=== PATIENT | female | born 1940 | race Hispanic/Latino ===

== ENCOUNTER 2017-06-09 12:07 | Inpatient (IN) | payer OTHER ==
[~2017-06-09] VITALS: Ht 149.9 cm; Wt 53.4 kg
[~2017-06-09 12:07] MED LIST: ADV250 IH; AEC81 PO; ATOR10 PO; CARV3.12 PO; Cephalexin PO; FURO20TA6 PO; LEVAHFA IH; PRED10TA3 PO
[2017-06-09] MEDS ORDERED: IPRATROPIUM/ALBUTEROL SULFATE 3 ML SOLUTION IH ONE (12:16)
[2017-06-09] MEDS ORDERED: CEFTRIAXONE SODIUM 2 GM VIAL ONE (12:26)
[2017-06-09] MEDS ORDERED: DEXAMETHASONE SOD PHOSPHATE 10MG/ML 1ML VIAL ONE (12:26)
[2017-06-09] MEDS ORDERED: ALBUTEROL SULFATE 0.083% 2.5 MG/3 ML INH IH ONE (12:32)
[2017-06-09 12:40] LABS: BASOPHILS % (AUTO) 1.5 % (0.0-5.0); EOSINOPHILS % (AUTO) 2.8 % (0.0-8.0); HEMATOCRIT 34.5 % (36-48); LYMPHOCYTES % (AUTO) 35.6 % (21.0-51.0); MEAN CORPUSCULAR HEMOGLOBIN 28.6 pg (27.0-33.0); MEAN CORPUSCULAR HGB CONC 32.3 g/dL (32.0-36.0); MEAN CORPUSCULAR VOLUME 88.7 fL (79-99); MONOCYTES % (AUTO) 4.8 % (3.0-13.0); NEUTROPHILS % (AUTO) 55.3 % (40.0-77.0); PLATELET COUNT (AUTO) 333 K/uL (130-400); RED BLOOD CELL COUNT(AUTO) 3.89 MIL/uL (4.00-5.50); RED CELL DISTRIBUTION WIDTH 15.8 % (11.0-15.5); WHITE BLOOD COUNT (AUTO) 8.8 K/uL (4.8-10.8)
[2017-06-09 12:40] LABS: ABG BASE EXCESS -1.2 mmol/L (-2.0-3.0); ABG HCO3 29.1 mmol/L (21.0-28.0); ABG OXYGEN SATURATION 98.8 % (95.0-99.0); ABG PCO2 76 mmHg (32-45)
[2017-06-09 12:53] LABS: CREATININE 1.2 mg/dL (0.5-1.5); POTASSIUM 4.9 mmol/L (3.5-5.1)
[2017-06-09 12:58] LABS: BILIRUBIN,TOTAL 0.2 mg/dL (0.2-1.0); TOTAL PROTEIN, SERUM 7.2 g/dL (6.0-8.3)
[2017-06-09 13:51] LABS: CREATINE KINASE MB 0.9 ng/mL (0.5-3.6); CREATINE KINASE, TOTAL 49 U/L (21-232); MYOGLOBIN 63 ng/mL (10-92); TROPONIN I < 0.04 ng/mL (0.00-0.06)
[2017-06-09 15:10] VITALS: BP 131/70
[2017-06-09] MEDS ORDERED: METHYLPREDNISOLONE SOD SUCC 125MG/2ML VIAL IVP SCH (16:00)
[2017-06-09] MEDS ORDERED: IPRATROPIUM/ALBUTEROL SULFATE 3 ML SOLUTION IH PRN (16:00)
[2017-06-09] MEDS ORDERED: ENOXAPARIN SODIUM 30 MG/0.3 ML SQ SCH (16:45)
[2017-06-09] MEDS ORDERED: SODIUM CHLORIDE 0.9% 1000ML 1,000 ML IV SCH (17:26)
[2017-06-09] MEDS ORDERED: DiphenhydrAMINE HCL 50 MG/ML VIAL IV PRN (17:30)
[2017-06-09] MEDS ORDERED: CEFTRIAXONE 1GM/D5W 50ML 50 ML IV SCH (17:30)
[2017-06-09] MEDS ORDERED: DIPHENHYDRAMINE HCL 25 MG CAPSULE PO PRN (17:30)
[2017-06-09] MEDS ORDERED: ONDANSETRON HCL 4 MG/2 ML VIAL IV PRN (17:30)
[2017-06-09] MEDS ORDERED: LACTULOSE 20 GM/30 ML UDCUP PO PRN (17:30)
[2017-06-09] MEDS ORDERED: ACETAMINOPHEN 325 MG TAB PO PRN ×2 (17:30)
[2017-06-09] MEDS ORDERED: MAG HYDROX/AL HYDROX/SIMETH ES 30 ML SUSP UDCUP PO PRN (17:30)
[2017-06-09] MEDS: METHYLPREDNISOLONE SOD SUCC 125MG/2ML VIAL IVP SCH ×2 (17:43→23:35)
[2017-06-09] MEDS ORDERED: LIDOCAINE HCL-MPF 1% 2ML VIAL IVP PRN (17:45)
[2017-06-09] MEDS ORDERED: POTASSIUM CHLORIDE 20MEQ/100ML 100 ML IV PRN (17:45)
[2017-06-09] MEDS ORDERED: AZITHROMYCIN 250 MG TABLET PO SCH ×2 (17:45→21:00)
[2017-06-09] MEDS ORDERED: POTASSIUM CHLORIDE 20 MEQ ERTAB PO PRN (17:45)
[2017-06-09] MEDS ORDERED: POTASSIUM CHLORIDE 10% ELIXIR 20 MEQ/15 ML UDCUP PO PRN (17:45)
[2017-06-09 19:01] VITALS: BP 126/68
[2017-06-09] MEDS ORDERED: ALBU1.252 IH (19:35)
[2017-06-09] MEDS ORDERED: IPRA3AMP4 IH (19:35)
[2017-06-09] MEDS ORDERED: CLON1TAB4 PO (19:35)
[2017-06-09] MEDS ORDERED: ALBU0.63 IH (19:35)
[2017-06-09] MEDS ORDERED: IPRA0.2S54 IH (19:35)
[2017-06-09] MEDS ORDERED: LEVAHFA IH (19:35)
[2017-06-09] MEDS ORDERED: CEPH PO (19:35)
[2017-06-09] MEDS ORDERED: RANI15SY2 PO (19:35)
[2017-06-09] MEDS ORDERED: ACET-48 PO (19:35)
[2017-06-09] MEDS ORDERED: DICLOFENAC 1% TP (19:35)
[2017-06-09] MEDS ORDERED: CARV6.25 PO (19:35)
[2017-06-09] MEDS ORDERED: TRIAMCINOLONE 0.1% TP (19:35)
[2017-06-09] MEDS: IPRATROPIUM/ALBUTEROL SULFATE 3 ML SOLUTION IH SCH ×2 (19:43→22:49)
[2017-06-09] MEDS: ATORVASTATIN CALCIUM 20 MG TABLET PO SCH (21:00)
[2017-06-09] MEDS: CARVEDILOL 3.125 MG TABLET PO SCH (21:04)
[2017-06-09 23:05] VITALS: BP 116/62
[2017-06-10] MEDS: IPRATROPIUM/ALBUTEROL SULFATE 3 ML SOLUTION IH SCH ×6 (02:02→22:29)
[2017-06-10 02:59] VITALS: BP 126/59
[2017-06-10 03:43] LABS: CREATININE 1.1 mg/dL (0.5-1.5)
[2017-06-10 03:50] LABS: HEMATOCRIT 31.4 % (36-48); MEAN CORPUSCULAR HEMOGLOBIN 29.4 pg (27.0-33.0); MEAN CORPUSCULAR HGB CONC 33.2 g/dL (32.0-36.0); MEAN CORPUSCULAR VOLUME 88.4 fL (79-99); NUCLEATED RED BLOOD CELLS 0.1 % (0.0-0.19); PLATELET COUNT (AUTO) 280 K/uL (130-400); RED BLOOD CELL COUNT(AUTO) 3.55 MIL/uL (4.00-5.50); RED CELL DISTRIBUTION WIDTH 15.1 % (11.0-15.5); WHITE BLOOD COUNT (AUTO) 5.7 K/uL (4.8-10.8)
[2017-06-10] MEDS: METHYLPREDNISOLONE SOD SUCC 125MG/2ML VIAL IVP SCH (05:50)
[2017-06-10 08:19] VITALS: BP 124/59
[2017-06-10] MEDS ORDERED: CEFTRIAXONE SODIUM 1 GM IVP SCH (09:00)
[2017-06-10] MEDS ORDERED: FAMOTIDINE 20MG TAB 20 MG TAB PO SCH (09:00)
[2017-06-10] MEDS ORDERED: CEFTRIAXONE 1GM/D5W 50ML 50 ML IV SCH (09:00)
[2017-06-10] MEDS: ASPIRIN 81 MG EC TAB PO SCH (09:20)
[2017-06-10] MEDS: PANTOPRAZOLE SODIUM 40 MG TABLET.DR PO SCH (09:20)
[2017-06-10] MEDS: CARVEDILOL 3.125 MG TABLET PO SCH ×2 (09:21→20:33)
[2017-06-10] MEDS: FUROSEMIDE 20 MG TABLET PO SCH (09:21)
[2017-06-10] MEDS: ENOXAPARIN SODIUM 30 MG/0.3 ML SQ SCH (09:22)
[2017-06-10] MEDS: PREDNISONE 20 MG TABLET PO SCH (10:15)
[2017-06-10 11:00] VITALS: BP 109/61
[2017-06-10] MEDS ORDERED: CARV3.1262 PO (13:23)
[2017-06-10] MEDS ORDERED: AZIT250T PO (13:27)
[2017-06-10] MEDS ORDERED: PRED10TA3 PO (13:27)
[2017-06-10 16:00] VITALS: BP 155/81
[2017-06-10] MEDS: DOCUSATE SODIUM 100 MG CAP PO SCH (16:30)
[2017-06-10 19:00] VITALS: BP 159/83
[2017-06-10] MEDS: ATORVASTATIN CALCIUM 20 MG TABLET PO SCH (20:30)
[2017-06-10] MEDS: GUAIFENESIN 600 MG TABLET.ER PO SCH (20:33)
[2017-06-10] MEDS: AZITHROMYCIN 250 MG TABLET PO SCH (20:34)
[2017-06-10 23:00] VITALS: BP 140/72
[2017-06-11] MEDS: IPRATROPIUM/ALBUTEROL SULFATE 3 ML SOLUTION IH SCH ×6 (01:30→22:02)
[2017-06-11 03:00] VITALS: BP 126/58
[2017-06-11] MEDS: DOCUSATE SODIUM 100 MG CAP PO SCH ×2 (06:12→16:30)
[2017-06-11 07:38] VITALS: BP 150/86
[2017-06-11] MEDS: PANTOPRAZOLE SODIUM 40 MG TABLET.DR PO SCH (09:40)
[2017-06-11] MEDS: ENOXAPARIN SODIUM 30 MG/0.3 ML SQ SCH (09:40)
[2017-06-11] MEDS: GUAIFENESIN 600 MG TABLET.ER PO SCH ×2 (09:40→20:28)
[2017-06-11] MEDS: FUROSEMIDE 20 MG TABLET PO SCH (09:40)
[2017-06-11] MEDS: PREDNISONE 20 MG TABLET PO SCH (09:41)
[2017-06-11] MEDS: ASPIRIN 81 MG EC TAB PO SCH (09:41)
[2017-06-11] MEDS: CARVEDILOL 3.125 MG TABLET PO SCH ×2 (09:41→20:27)
[2017-06-11 11:29] VITALS: BP 162/80
[2017-06-11 16:09] VITALS: BP 152/80
[2017-06-11 19:00] VITALS: BP 141/67
[2017-06-11] MEDS: ATORVASTATIN CALCIUM 20 MG TABLET PO SCH (20:28)
[2017-06-11] MEDS: AZITHROMYCIN 250 MG TABLET PO SCH (20:28)
[2017-06-11 23:00] VITALS: BP 106/64
[2017-06-12] MEDS: IPRATROPIUM/ALBUTEROL SULFATE 3 ML SOLUTION IH SCH ×3 (01:43→09:52)
[2017-06-12 03:00] VITALS: BP 127/64
[2017-06-12] MEDS: DOCUSATE SODIUM 100 MG CAP PO SCH (05:24)
[2017-06-12 07:00] VITALS: BP 144/70
[2017-06-12] MEDS: GUAIFENESIN 600 MG TABLET.ER PO SCH (08:38)
[2017-06-12] MEDS: ASPIRIN 81 MG EC TAB PO SCH (08:38)
[2017-06-12] MEDS: PREDNISONE 20 MG TABLET PO SCH (08:38)
[2017-06-12] MEDS: ENOXAPARIN SODIUM 30 MG/0.3 ML SQ SCH (08:39)
[2017-06-12] MEDS: CARVEDILOL 3.125 MG TABLET PO SCH (08:39)
[2017-06-12] MEDS: FUROSEMIDE 20 MG TABLET PO SCH (08:39)
[2017-06-12] MEDS: PANTOPRAZOLE SODIUM 40 MG TABLET.DR PO SCH (08:39)
[2017-06-12 11:00] VITALS: BP 154/89
== END 2017-06-12 11:20 | disposition home or self-care (01) | DRG 189 ==
LOC: EDH 12:07 → EDHIP 14:05 → 2DH 15:11
PROVIDERS: ADMIT Internal Medicine; ATTEND Internal Medicine
DX: J96.21 Acute and chronic respiratory failure with hypoxia (principal); E11.22 Type 2 diabetes mellitus with diabetic chronic kidney disease; E11.42 Type 2 diabetes mellitus with diabetic polyneuropathy; I13.0 Hypertensive heart and chronic kidney disease with heart failure and stage 1 through stage 4 chronic kidney disease, or unspecified chronic kidney disease; I50.32 Chronic diastolic (congestive) heart failure; J44.1 Chronic obstructive pulmonary disease with (acute) exacerbation; J84.10 Pulmonary fibrosis, unspecified; Z99.81 Dependence on supplemental oxygen; K21.9 Gastro-esophageal reflux disease without esophagitis; I25.10 Atherosclerotic heart disease of native coronary artery without angina pectoris; N18.2 Chronic kidney disease, stage 2 (mild); F41.9 Anxiety disorder, unspecified; E04.2 Nontoxic multinodular goiter; E78.5 Hyperlipidemia, unspecified; F03.90 Unspecified dementia, unspecified severity, without behavioral disturbance, psychotic disturbance, mood disturbance, and anxiety; F32.9 Major depressive disorder, single episode, unspecified; I27.20 Pulmonary hypertension, unspecified; E11.51 Type 2 diabetes mellitus with diabetic peripheral angiopathy without gangrene; I70.0 Atherosclerosis of aorta; J30.9 Allergic rhinitis, unspecified; M81.0 Age-related osteoporosis without current pathological fracture; Z51.5 Encounter for palliative care; Z66 Do not resuscitate; Z79.82 Long term (current) use of aspirin; Z79.899 Other long term (current) drug therapy; Z95.5 Presence of coronary angioplasty implant and graft; Z87.891 Personal history of nicotine dependence; Z85.3 Personal history of malignant neoplasm of breast; Z83.3 Family history of diabetes mellitus; Z82.5 Family history of asthma and other chronic lower respiratory diseases; Z82.49 Family history of ischemic heart disease and other diseases of the circulatory system; Z82.3 Family history of stroke; Z82.0 Family history of epilepsy and other diseases of the nervous system; Z80.0 Family history of malignant neoplasm of digestive organs; Z88.8 Allergy status to other drugs, medicaments and biological substances
CPT/HCPCS: 36415; 36600; 71045; 74018; 80048; 80053; 82550; 82553; 82803; 83874; 83880; 84484; 85025; 85027; 87040; 87186; 87804; 93005; 94640; 94660; 94664; 99291; A4218; J0696; J1100; J1650; J2930; J7030

== ENCOUNTER 2017-09-28 11:49 | Observation (INO) | payer OTHER ==
[~2017-09-28] VITALS: Ht 149.9 cm; Wt 53.2 kg
[~2017-09-28 11:49] MED LIST changes: -ADV250 IH; +ALBU1.252 IH; +AZIT250T PO; -CARV3.12 PO; +CARV3.1262 PO; +CLON1TAB5 PO; -Cephalexin PO; -FURO20TA6 PO; -LEVAHFA IH
[2017-09-28] MEDS ORDERED: METHYLPREDNISOLONE SOD SUCC 125MG/2ML VIAL ONE (11:56)
[2017-09-28] MEDS ORDERED: IPRATROPIUM/ALBUTEROL SULFATE 3 ML SOLUTION IH ONE (12:02)
[2017-09-28 12:23] LABS: ABG BASE EXCESS 5.6 mmol/L (-2.0-3.0); ABG HCO3 35.1 mmol/L (21.0-28.0); ABG OXYGEN SATURATION 97.6 % (95.0-99.0); ABG PCO2 75 mmHg (32-45)
[2017-09-28 12:32] LABS: BASOPHILS % (AUTO) 0.5 % (0.0-5.0); EOSINOPHILS % (AUTO) 3.6 % (0.0-8.0); LYMPHOCYTES % (AUTO) 21.8 % (21.0-51.0); MEAN CORPUSCULAR HEMOGLOBIN 30.3 pg (27.0-33.0); MEAN CORPUSCULAR HGB CONC 34.1 g/dL (32.0-36.0); MEAN CORPUSCULAR VOLUME 88.6 fL (79-99); MONOCYTES % (AUTO) 9.4 % (3.0-13.0); NEUTROPHILS % (AUTO) 64.7 % (40.0-77.0); PLATELET COUNT (AUTO) 271 K/uL (130-400); RED BLOOD CELL COUNT(AUTO) 4.06 MIL/uL (4.00-5.50); RED CELL DISTRIBUTION WIDTH 15.3 % (11.0-15.5); WHITE BLOOD COUNT (AUTO) 6.1 K/uL (4.8-10.8)
[2017-09-28 12:55] LABS: CREATININE 0.8 mg/dL (0.5-1.5); POTASSIUM 4.9 mmol/L (3.5-5.1)
[2017-09-28 13:38] LABS: B-TYPE NATRIURETIC PEPTIDE 205 pg/mL (0-100)
[2017-09-28] MEDS ORDERED: ALBUTEROL SULFATE 0.083% 2.5 MG/3 ML INH IH ONE (13:46)
[2017-09-28] MEDS ORDERED: LEVOFLOXACIN 500 MG/D5W 100 ML 100 ML ONE (14:10)
[2017-09-28] MEDS ORDERED: 1/2 NORMAL SALINE 1,000 ML IV SCH (15:15)
[2017-09-28] MEDS ORDERED: FURO20TA4 PO (17:07)
[2017-09-28] MEDS ORDERED: PRED2.5T PO (17:07)
[2017-09-28 18:09] VITALS: BP 178/82
[2017-09-28] MEDS: IPRATROPIUM/ALBUTEROL SULFATE 3 ML SOLUTION IH SCH ×2 (18:30→21:36)
[2017-09-28 19:00] VITALS: BP 153/84
[2017-09-28] MEDS ORDERED: POTASSIUM CHLORIDE 20MEQ/100ML 100 ML IV PRN ×2 (20:30)
[2017-09-28] MEDS ORDERED: POTASSIUM CHLORIDE 10% ELIXIR 20 MEQ/15 ML UDCUP PO PRN ×2 (20:30)
[2017-09-28] MEDS ORDERED: ONDANSETRON HCL 4 MG/2 ML VIAL IV PRN (20:30)
[2017-09-28] MEDS ORDERED: MAG HYDROX/AL HYDROX/SIMETH ES 30 ML SUSP UDCUP PO PRN (20:30)
[2017-09-28] MEDS ORDERED: LIDOCAINE HCL-MPF 1% 2ML VIAL IVP PRN ×2 (20:30)
[2017-09-28] MEDS ORDERED: ALBUTEROL SULFATE 0.083% 2.5 MG/3 ML INH IH PRN (20:30)
[2017-09-28] MEDS ORDERED: DEXTROSE 50%-WATER 50 ML DISP.SYRIN IV PRN (20:30)
[2017-09-28] MEDS ORDERED: POTASSIUM CHLORIDE 20 MEQ ERTAB PO PRN ×2 (20:30)
[2017-09-28] MEDS ORDERED: GLUCAGON 1MG KIT 1 MG ML IM PRN (20:30)
[2017-09-28] MEDS ORDERED: LACTULOSE 20 GM/30 ML UDCUP PO PRN (20:30)
[2017-09-28] MEDS ORDERED: ACETAMINOPHEN 325 MG TAB PO PRN ×2 (20:30)
[2017-09-28] MEDS: INSULIN HUMULIN R 100 UNIT/ML 3ML SQ SCH (21:00)
[2017-09-28] MEDS: CLONAZEPAM 1 MG TABLET PO PRN (22:05)
[2017-09-28] MEDS: CARVEDILOL 3.125 MG TABLET PO SCH (22:06)
[2017-09-28] MEDS: AZITHROMYCIN 250 MG TABLET PO SCH (22:06)
[2017-09-29] VITALS: BP 94/53
[2017-09-29] MEDS: METHYLPREDNISOLONE SOD SUCC 125MG/2ML VIAL IVP SCH ×2 (01:18→06:45)
[2017-09-29] MEDS: IPRATROPIUM/ALBUTEROL SULFATE 3 ML SOLUTION IH SCH ×6 (01:43→23:03)
[2017-09-29 04:00] VITALS: BP 116/66
[2017-09-29] MEDS: INSULIN HUMULIN R 100 UNIT/ML 3ML SQ SCH (05:39)
[2017-09-29 08:19] VITALS: BP 142/71
[2017-09-29] MEDS: CARVEDILOL 3.125 MG TABLET PO SCH ×2 (08:59→22:13)
[2017-09-29] MEDS: PANTOPRAZOLE SODIUM 40 MG TABLET.DR PO SCH (08:59)
[2017-09-29] MEDS ORDERED: LEVOFLOXACIN 500 MG/D5W 100 ML 100 ML IV SCH (09:00)
[2017-09-29] MEDS ORDERED: ALBU2.5V2 IH (09:15)
[2017-09-29] MEDS ORDERED: AZIT250T PO (09:15)
[2017-09-29] MEDS ORDERED: PRED10TA3 PO (09:15)
[2017-09-29 11:34] VITALS: BP 157/80
[2017-09-29] MEDS ORDERED: PREDNISONE 20 MG TABLET PO SCH (13:00)
[2017-09-29] MEDS: CLONAZEPAM 1 MG TABLET PO PRN (15:49)
[2017-09-29 16:28] VITALS: BP 156/84
[2017-09-29 20:00] VITALS: BP 170/88
[2017-09-29] MEDS: AZITHROMYCIN 250 MG TABLET PO SCH (22:13)
[2017-09-30] VITALS: BP 127/68
[2017-09-30] MEDS: IPRATROPIUM/ALBUTEROL SULFATE 3 ML SOLUTION IH SCH ×4 (02:10→14:41)
[2017-09-30 04:00] VITALS: BP 125/62
[2017-09-30] MEDS ORDERED: PREDNISONE 20 MG TABLET PO SCH ×2 (07:00→09:00)
[2017-09-30 08:00] VITALS: BP 170/84
[2017-09-30] MEDS: PANTOPRAZOLE SODIUM 40 MG TABLET.DR PO SCH (09:40)
[2017-09-30] MEDS: CARVEDILOL 3.125 MG TABLET PO SCH (09:41)
[2017-09-30] MEDS ORDERED: ALBUTEROL SULFATE 0.083% 2.5 MG/3 ML INH IH PRN (10:33)
[2017-09-30 11:00] VITALS: BP 173/86
[2017-09-30 16:00] VITALS: BP 172/88
[2017-09-30] MEDS: CLONAZEPAM 1 MG TABLET PO PRN (16:51)
[2017-09-30 17:14] VITALS: BP 172/88
[2017-09-30] MEDS ORDERED: CARVEDILOL 3.125 MG TABLET PO SCH (17:15)
== END 2017-09-30 17:40 | disposition home or self-care (01) ==
LOC: EDH 11:49 → EDHIP 14:25 → 3BH 16:58
PROVIDERS: ADMIT Internal Medicine; ATTEND Internal Medicine
DX: J44.1 Chronic obstructive pulmonary disease with (acute) exacerbation (principal); J96.10 Chronic respiratory failure, unspecified whether with hypoxia or hypercapnia; I13.0 Hypertensive heart and chronic kidney disease with heart failure and stage 1 through stage 4 chronic kidney disease, or unspecified chronic kidney disease; N18.2 Chronic kidney disease, stage 2 (mild); I50.32 Chronic diastolic (congestive) heart failure; E78.2 Mixed hyperlipidemia; K21.9 Gastro-esophageal reflux disease without esophagitis; M81.0 Age-related osteoporosis without current pathological fracture; E04.2 Nontoxic multinodular goiter; I25.10 Atherosclerotic heart disease of native coronary artery without angina pectoris; G62.9 Polyneuropathy, unspecified; I27.20 Pulmonary hypertension, unspecified; I70.0 Atherosclerosis of aorta; I73.9 Peripheral vascular disease, unspecified; J84.10 Pulmonary fibrosis, unspecified; F13.20 Sedative, hypnotic or anxiolytic dependence, uncomplicated; F41.1 Generalized anxiety disorder; Z51.5 Encounter for palliative care; Z66 Do not resuscitate; Z82.49 Family history of ischemic heart disease and other diseases of the circulatory system; Z82.5 Family history of asthma and other chronic lower respiratory diseases; Z83.3 Family history of diabetes mellitus; Z85.3 Personal history of malignant neoplasm of breast; Z91.19 Patient's noncompliance with other medical treatment and regimen; Z92.21 Personal history of antineoplastic chemotherapy; Z95.5 Presence of coronary angioplasty implant and graft; Z99.81 Dependence on supplemental oxygen; Z79.82 Long term (current) use of aspirin
CPT/HCPCS: 36415; 36600; 71045; 80048; 82803; 82948 ×2; 83880; 84484; 85025; 93005; 94640 ×14; 94664; 96374; 96376; 97116; 97161; 99291; G0378 ×51; G8978; G8979; G8980; G8981; G8982; G8983; J1956; J2930 ×3

== ENCOUNTER 2017-11-14 16:21 | Observation (INO) | payer OTHER ==
[~2017-11-14] VITALS: Ht 149.9 cm; Wt 54.6 kg
[~2017-11-14 16:21] MED LIST changes: -AEC81 PO; -ALBU1.252 IH; +ALBU2.5V2 IH; -ATOR10 PO; +FURO20TA4 PO
[2017-11-14 16:42] LABS: BASOPHILS % (AUTO) 0.7 % (0.0-5.0); EOSINOPHILS % (AUTO) 2.4 % (0.0-8.0); HEMATOCRIT 34.6 % (36-48); LYMPHOCYTES % (AUTO) 16.5 % (21.0-51.0); MEAN CORPUSCULAR HEMOGLOBIN 29.2 pg (27.0-33.0); MEAN CORPUSCULAR HGB CONC 33.5 g/dL (32.0-36.0); MEAN CORPUSCULAR VOLUME 87.2 fL (79-99); MONOCYTES % (AUTO) 6.4 % (3.0-13.0); PLATELET COUNT (AUTO) 268 K/uL (130-400); RED BLOOD CELL COUNT(AUTO) 3.97 MIL/uL (4.00-5.50); RED CELL DISTRIBUTION WIDTH 15.4 % (11.0-15.5); WHITE BLOOD COUNT (AUTO) 7.6 K/uL (4.8-10.8)
[2017-11-14 16:50] LABS: CREATININE 1.2 mg/dL (0.5-1.5); POTASSIUM 4.1 mmol/L (3.5-5.1)
[2017-11-14 16:55] LABS: ALBUMIN 3.1 g/dL (3.5-5.0); BILIRUBIN,TOTAL 0.2 mg/dL (0.2-1.0)
[2017-11-14 17:07] LABS: CREATINE KINASE MB 0.9 ng/mL (0.5-3.6); CREATINE KINASE, TOTAL 79 U/L (21-232); MYOGLOBIN 39 ng/mL (10-92); TROPONIN I < 0.04 ng/mL (0.00-0.06)
[2017-11-14] MEDS ORDERED: IPRATROPIUM/ALBUTEROL SULFATE 3 ML SOLUTION IH ONE (18:03)
[2017-11-14] MEDS ORDERED: METHYLPREDNISOLONE SOD SUCC 125MG/2ML VIAL ONE (18:32)
[2017-11-14] MEDS: AZITHROMYCIN 250 MG TABLET PO SCH (20:00)
[2017-11-14] MEDS ORDERED: AZITHROMYCIN 250 MG TABLET PO ONE (20:52)
[2017-11-14 22:15] VITALS: BP 197/88
[2017-11-14] MEDS ORDERED: FURO20TA4 PO (22:34)
[2017-11-14] MEDS: IPRATROPIUM/ALBUTEROL SULFATE 3 ML SOLUTION IH SCH (22:38)
[2017-11-14 23:51] VITALS: BP 146/74
[2017-11-15] MEDS: METHYLPREDNISOLONE SOD SUCC 125MG/2ML VIAL IVP SCH ×4 (01:03→21:02)
[2017-11-15] MEDS: IPRATROPIUM/ALBUTEROL SULFATE 3 ML SOLUTION IH SCH ×6 (01:29→21:58)
[2017-11-15 04:00] VITALS: BP 152/73
[2017-11-15 08:00] VITALS: BP 155/84
[2017-11-15] MEDS ORDERED: CLONAZEPAM 1 MG TABLET PO SCH (09:30)
[2017-11-15] MEDS ORDERED: CLONAZEPAM 1 MG TABLET PO PRN (09:30)
[2017-11-15] MEDS: AZITHROMYCIN 250 MG TABLET PO SCH (09:37)
[2017-11-15] MEDS: PANTOPRAZOLE SODIUM 40 MG TABLET.DR PO SCH (09:56)
[2017-11-15 11:00] VITALS: BP 138/67
[2017-11-15 16:00] VITALS: BP 158/76
[2017-11-15 20:14] VITALS: BP 125/65
[2017-11-15] MEDS ORDERED: CLONAZEPAM 0.5 MG TABLET PO PRN (20:55)
[2017-11-15] MEDS: CARVEDILOL 3.125 MG TABLET PO SCH (21:01)
[2017-11-15] MEDS: CLONAZEPAM 0.5 MG TABLET PO SCH (21:01)
[2017-11-15 23:50] VITALS: BP 125/59
[2017-11-16] MEDS: IPRATROPIUM/ALBUTEROL SULFATE 3 ML SOLUTION IH SCH ×3 (01:12→09:36)
[2017-11-16 04:00] VITALS: BP 120/54
[2017-11-16] MEDS: METHYLPREDNISOLONE SOD SUCC 125MG/2ML VIAL IVP SCH (04:25)
[2017-11-16] MEDS ORDERED: PREDNISONE 20 MG TABLET PO SCH (07:45)
[2017-11-16] MEDS ORDERED: AZIT250T PO (07:49)
[2017-11-16] MEDS ORDERED: PRED10TA3 PO (07:49)
[2017-11-16 08:00] VITALS: BP 143/72
[2017-11-16] MEDS: CLONAZEPAM 0.5 MG TABLET PO SCH (08:40)
[2017-11-16] MEDS: AZITHROMYCIN 250 MG TABLET PO SCH (08:40)
[2017-11-16] MEDS: PANTOPRAZOLE SODIUM 40 MG TABLET.DR PO SCH (08:40)
[2017-11-16 08:41] VITALS: BP 143/72
[2017-11-16] MEDS: CARVEDILOL 3.125 MG TABLET PO SCH (08:41)
[2017-11-16] MEDS ORDERED: ENOXAPARIN SODIUM 30 MG/0.3 ML SQ SCH (09:00)
== END 2017-11-16 12:05 | disposition home or self-care (01) ==
LOC: EDH 16:21 → EDHIP 19:30 → 3AH 20:27
PROVIDERS: ADMIT Internal Medicine; ATTEND Internal Medicine
DX: J44.1 Chronic obstructive pulmonary disease with (acute) exacerbation (principal); J96.10 Chronic respiratory failure, unspecified whether with hypoxia or hypercapnia; E78.2 Mixed hyperlipidemia; K21.9 Gastro-esophageal reflux disease without esophagitis; M81.0 Age-related osteoporosis without current pathological fracture; I13.0 Hypertensive heart and chronic kidney disease with heart failure and stage 1 through stage 4 chronic kidney disease, or unspecified chronic kidney disease; I50.32 Chronic diastolic (congestive) heart failure; N18.2 Chronic kidney disease, stage 2 (mild); E04.2 Nontoxic multinodular goiter; I25.10 Atherosclerotic heart disease of native coronary artery without angina pectoris; J84.10 Pulmonary fibrosis, unspecified; I70.0 Atherosclerosis of aorta; I73.9 Peripheral vascular disease, unspecified; G62.9 Polyneuropathy, unspecified; I27.20 Pulmonary hypertension, unspecified; F13.20 Sedative, hypnotic or anxiolytic dependence, uncomplicated; F41.1 Generalized anxiety disorder; Z51.5 Encounter for palliative care; Z66 Do not resuscitate; Z80.1 Family history of malignant neoplasm of trachea, bronchus and lung; Z82.49 Family history of ischemic heart disease and other diseases of the circulatory system; Z83.3 Family history of diabetes mellitus; Z85.3 Personal history of malignant neoplasm of breast; Z92.21 Personal history of antineoplastic chemotherapy; Z92.3 Personal history of irradiation; Z95.5 Presence of coronary angioplasty implant and graft; Z99.81 Dependence on supplemental oxygen; Z79.899 Other long term (current) drug therapy
CPT/HCPCS: 36415; 71046; 80053; 82550; 82553; 83605; 83874; 83880; 84484; 85025; 87040 ×2; 93005; 94640 ×11; 94664; 96374; 96376 ×2; 99291; A4510; G0378 ×41; J2930 ×6

== ENCOUNTER 2019-07-31 10:17 | Emergency (ER) | payer OTHER ==
[~2019-07-31 10:17] MED LIST changes: +CLON1TAB12 PO; -CLON1TAB5 PO; +LEVAHFA IH
[2019-07-31 11:12] LABS: CREATININE 0.9 mg/dL (0.5-1.5); POTASSIUM 4.7 mmol/L (3.5-5.1)
[2019-07-31 11:17] LABS: ALBUMIN 2.9 g/dL (3.5-5.0); BILIRUBIN,TOTAL 0.3 mg/dL (0.2-1.0); TOTAL PROTEIN, SERUM 7.2 g/dL (6.0-8.3)
[2019-07-31 11:20] LABS: BASOPHILS % (AUTO) 0.4 % (0.0-5.0); EOSINOPHILS % (AUTO) 2.9 % (0.0-8.0); HEMATOCRIT 34.2 % (36-48); LYMPHOCYTES % (AUTO) 15.3 % (21.0-51.0); MEAN CORPUSCULAR HEMOGLOBIN 28.5 pg (27.0-33.0); MEAN CORPUSCULAR HGB CONC 30.4 g/dL (32.0-36.0); MEAN CORPUSCULAR VOLUME 93.7 fL (79-99); MONOCYTES % (AUTO) 8.9 % (3.0-13.0); NEUTROPHILS % (AUTO) 72.3 % (40.0-77.0); PLATELET COUNT (AUTO) 211 K/uL (130-400); RED BLOOD CELL COUNT(AUTO) 3.65 MIL/uL (4.00-5.50); RED CELL DISTRIBUTION WIDTH 14.3 % (11.0-15.5); WHITE BLOOD COUNT (AUTO) 8.3 K/uL (4.8-10.8)
[2019-07-31 11:24] LABS: B-TYPE NATRIURETIC PEPTIDE 516 pg/mL (0-100)
[2019-07-31 11:35] LABS: INR 0.96 (0.85-1.15); PARTIAL THROMBOPLASTIN TIME 30.8 SEC (26.3-35.5); PROTHROMBIN TIME 10.4 SEC (9.6-11.6)
[2019-07-31] MEDS ORDERED: METHYLPREDNISOLONE SOD SUCC 40MG/ML 1ML ONE (12:16)
[2019-07-31] MEDS ORDERED: FUROSEMIDE 10 MG/ML 2ML VIAL ONE (12:16)
[2019-07-31] MEDS ORDERED: IPRATROPIUM/ALBUTEROL SULFATE 3 ML SOLUTION IH ONE (12:24)
[2019-07-31] MEDS ORDERED: METOPROLOL TARTRATE 25 MG TAB ONE (15:41)
== END 2019-07-31 17:45 | disposition home or self-care (01) ==
LOC: EDH 10:17
DX: J44.1 Chronic obstructive pulmonary disease with (acute) exacerbation (principal); I11.0 Hypertensive heart disease with heart failure; I50.43 Acute on chronic combined systolic (congestive) and diastolic (congestive) heart failure; Z91.19 Patient's noncompliance with other medical treatment and regimen; I25.10 Atherosclerotic heart disease of native coronary artery without angina pectoris; Z88.8 Allergy status to other drugs, medicaments and biological substances; Z85.3 Personal history of malignant neoplasm of breast; Z87.891 Personal history of nicotine dependence
CPT/HCPCS: 36415; 70450; 71045; 74176; 80053; 82550; 83880; 84484; 85025; 85610; 85730; 87804 ×2; 93005; 94640; 96374; 96375; 99285; J1940; J2920